=== PATIENT | female | born 1990 | race Caucasian/White ===

== ENCOUNTER 2025-01-07 04:27 | Emergency (ER) | payer BC ==
[2025-01-07] MEDS ORDERED: Naloxone 0.4 MG/ML SDV IVPUSH PRN (04:43)
[2025-01-07] MEDS: Ondansetron 4 MG/2 ML SDV IVPUSH ONE (04:49)
[2025-01-07] MEDS: Sodium Chloride 0.9% 1,000 ML IV ONE (04:49)
[2025-01-07] MEDS: Ketorolac 30 MG/ML SDV IVPUSH ONE (04:49)
[2025-01-07] MEDS: HYDROmorphone 0.5 MG/0.5 ML Syringe IVPUSH ONE (04:50)
[2025-01-07 05:18] LABS: A/G RATIO 1.3 (1-2); ALBUMIN 4.5 g/dl (3.4-5.0); ANION GAP 14.1 (5-15); BILIRUBIN TOTAL 0.7 mg/dL (0.2-1.0); CREATININE 0.9 mg/dL (0.55-1.02); EST CRCL DRUG DOSING (CG) 66.46 mL/min; MAGNESIUM 1.9 mg/dL (1.8-2.4); POTASSIUM,K 4.1 mEq/L (3.5-5.1); PROTEIN TOTAL,TP 7.9 g/dl (6.4-8.2)
[2025-01-07 05:27] LABS: BASOPHILS ABSOLUTE AUTO 0.1 K/mm3 (0.0-0.2); BASOPHILS PERCENT AUTO 0.4 % (0.0-1.0); EOSINOPHILS ABSOLUTE AUTO 0.1 K/mm3 (0.0-0.4); EOSINOPHILS PERCENT AUTO 0.8 % (0.0-6.0); HEMATOCRIT 42.7 % (37.0-47.0); HEMOGLOBIN 15.8 gm/dl (12.0-16.0); IMMATURE GRAN PERCENT AUTO 0.8 % (0.0-0.4); LYMPHOCYTES ABSOLUTE AUTO 2.1 K/mm3 (1.0-4.8); LYMPHOCYTES PERCENT AUTO 16.6 % (24.0-44.0); MEAN CORPUSCULAR HEMOGLOBIN 33.8 pg (28.0-32.0); MEAN CORPUSCULAR VOLUME 91.4 fl (83.0-99.0); MEAN PLATELET VOLUME 10.2 fl (9.4-12.3); MONOCYTES PERCENT AUTO 7.5 % (0.0-8.0); NEUTROPHILS ABSOLUTE AUTO 9.5 K/mm3 (1.8-7.7); NEUTROPHILS PERCENT AUTO 73.9 % (41.0-71.0); PLATELET COUNT,PLT 434 K/mm3 (150-400); RED BLOOD CELL COUNT 4.67 M/mm3 (4.10-5.30); WHITE BLOOD CELL COUNT,WBC 12.88 K/mm3 (3.9-11.3)
== END 2025-01-07 06:50 | disposition home or self-care (01) ==
LOC: JD.ED 04:27
DX: K80.20 Calculus of gallbladder without cholecystitis without obstruction (principal); Z79.899 Other long term (current) drug therapy; E66.9 Obesity, unspecified; Z86.16 Personal history of COVID-19
CPT/HCPCS: 36415; 76705; 80053; 80307; 82550; 83690; 83735; 85025; 96361; 96374; 96375; 99284; J1885; J2405; J7030